=== PATIENT | female | born 1985 | race African-American/Black ===

== ENCOUNTER 2016-10-28 10:16 | Emergency (ER) | payer SELFPAY ==
--- NOTE | 2016-10-28 11:13 | ER Document Report ---
ED Flu Like - General Chief Complaint: Flu Symptoms Stated Complaint: COLD SYMPTOMS Time Seen by Provider: 10/28/16 10:31 Mode of Arrival: Ambulatory Information source: Patient Notes: 31-year-old female presents to ED for fever cough cold and chills last night. She has nasal congestion and sore throat. Patient denies taking her temperature. TRAVEL OUTSIDE OF THE [place] IN LAST 30 DAYS: No - HPI Onset: Yesterday Timing/Duration: Better Quality of pain: Achy Severity: Moderate Pain Level: 3 CO exposure: No Associated symptoms: Nonproductive cough, Sinus pain/drainage Similar symptoms previously: Yes Recently seen / treated by doctor: No - Related Data Allergies/Adverse Reactions: No Known Allergies Allergy (Verified 10/28/16 10:25) Past Medical History - General Information source: Patient - Social History Smoking Status: Current Every Day Smoker Cigarette use (# per day): Yes - 7 cigarettes a day Chew tobacco use (# tins/day): No Smoking Education Provided: Yes - Less than 2 minutes Frequency of alcohol use: None Drug Abuse: None Occupation: [employer] Lives with: Family Family History: Hypertension Patient has suicidal ideation: No Patient has homicidal ideation: No - Past Medical History Cardiac Medical History: Reports: Hx Hypertension Pulmonary Medical History: Reports: None EENT Medical History: Reports: None Neurological Medical History: Reports: None Endocrine Medical History: Reports: None Renal/ Medical History: Reports: None Malignancy Medical History: Reports: None GI Medical History: Reports: None Musculoskeltal Medical History: Reports None Skin Medical History: Reports None Psychiatric Medical History: Reports: None Traumatic Medical History: Reports: None Infectious Medical History: Reports: None Surgical Hx: Negative - Immunizations Immunizations up to date: No Hx Diphtheria, Pertussis, Tetanus Vaccination: No Review of Systems - Review of Systems Constitutional: Fever, Recent illness EENT: Nose discharge, Sinus pressure, Throat pain Cardiovascular: No symptoms reported Respiratory: Cough Gastrointestinal: No symptoms reported Genitourinary: No symptoms reported Female Genitourinary: No symptoms reported Musculoskeletal: No symptoms reported Skin: No symptoms reported Hematologic/Lymphatic: No symptoms reported Neurological/Psychological: No symptoms reported -: Yes All other systems reviewed and negative Physical Exam - Vital signs Vitals: Temp Pulse Resp BP Pulse Ox 98.4 F 84 18 138/95 H 96 10/28/16 10:24 10/28/16 10:24 10/28/16 10:24 10/28/16 10:24 10/28/16 10:24 Interpretation: Normal - General General appearance: Appears well, Alert - HEENT Head: Normocephalic, Atraumatic Eyes: Normal Pupils: PERRL Ears: Normal External canal: Normal Tympanic membrane: Normal Sinus: Normal Nasal: Swelling, Clear rhinorrhea Mouth/Lips: Normal Mucous membranes: Normal Pharynx: Post nasal drainage Neck: Normal - Respiratory Respiratory status: No respiratory distress Chest status: Nontender Breath sounds: Normal Chest palpation: Normal - Cardiovascular Rhythm: Regular Heart sounds: Normal auscultation Murmur: No - Abdominal Inspection: Normal Distension: No distension Bowel sounds: Normal Tenderness: Nontender Organomegaly: No organomegaly - Back Back: Normal, Nontender - Extremities General upper extremity: Normal inspection, Nontender, Normal color, Normal ROM , Normal temperature General lower extremity: Normal inspection, Nontender, Normal color, Normal ROM , Normal temperature, Normal weight bearing. No: Nelly's sign - Neurological Neuro grossly intact: Yes Cognition: Normal Orientation: AAOx4 Margie Coma Scale Eye Opening: Spontaneous Margie Coma Scale Verbal: Oriented Margie Coma Scale Motor: Obeys Commands [place] Coma Scale Total: 15 Speech: Normal Motor strength normal: LUE, RUE, LLE, RLE Sensory: Normal - Psychological Associated symptoms: Normal affect, Normal mood - Skin Skin Temperature: Warm Skin Moisture: Dry Skin Color: Normal Course - Re-evaluation Re-evalutation: 10/28/16 11:42 History and physical patient was consistent with upper respiratory infection. Patient instructed to please follow-up with local doctor for her elevated blood pressure. Patient instructed to [facility] to the drugstore [facility] and get her blood pressure checked several times to take to the doctor when she goes to follow-up. Patient encouraged to use saline spray and salt and soda solution for her sore throat and cold. - Vital Signs Vital signs: Temp Pulse Resp BP Pulse Ox 97.7 F 85 17 135/97 H 97 10/28/16 11:27 10/28/16 11:27 10/28/16 11:27 10/28/16 11:27 10/28/16 11:27 Discharge - Discharge Clinical Impression: URI (upper respiratory infection) Qualifiers: URI type: unspecified URI Qualified Code(s): J06.9 - Acute upper respiratory infection, unspecified Condition: Stable Disposition: HOME, SELF-CARE Instructions: Family Physicians / Practices Additional Instructions: UPPER RESPIRATORY ILLNESS: You have a viral infection of the respiratory passages -- a "cold." This common infection causes nasal congestion, drainage, and often sore throat and cough. It is highly contagious. The disease usually lasts about 10 to 14 days. There is no "cure" for the viral infection -- it must run its course. If there is a complication, such as bacterial infection in the nose, sinuses, middle ear, or bronchial tubes, antibiotics may be required. The antibiotics won't affect the virus. Drink plenty of fluids. A humidifier may help. An expectorant medication or decongestant may make you more comfortable. Use acetaminophen or ibuprofen for fever or aches. See the doctor if fever persists over two days, if there is any significant worsening of your symptoms, or if you simply fail to improve as expected. COUGH-SUPPRESSANT & EXPECTORANT MEDICATION: You are to use a cough medication as needed for relief of symptoms. This medicine is a combination of an expectorant (to make the mucous thinner and more easily "coughed up") and a cough suppressant (to reduce the frequency of coughing). The cough-suppressant medicine is related to narcotics. You may experience mild nausea and sleepiness. Some patients who are very sensitive to narcotics may have stomach pain from this medicine. Taking the medicine with food reduces these side effects. Do not drive or work with machinery until you know how this medicine affects you. The expectorant should have no side effects. Iodine-containing expectorants (such as organidin) should not be taken by persons with active thyroid disease unless approved by your doctor. Call the doctor if you develop shortness of breath, hives, rash, itching, lightheadedness, or severe nausea and vomiting. USE OF ACETAMINOPHEN (Tylenol): Acetaminophen may be taken for pain relief or fever control. It's much safer than aspirin, offering a wider range of "safe" dosages. It is safe during . Some brand names are Tylenol, Panadol, Datril, Anacin 3, Tempra, and Liquiprin. Acetaminophen can be repeated every four hours. The following are maximum recommended dosages: >89 pounds or adults 650 mg to 900 mg Acetaminophen can be repeated every four hours. Maximum dose not to exceed 4000 mg a day. Salt and soda solution 1 quart of water 1 tablespoon of salt 1 teaspoon of baking soda Mixed 3 ingredients together and boil for 1 minute Placed in a covered quart jar Use 1/2 ounce of cold solution to gargle 3 times a day FOLLOW-UP CARE: If you have been referred to a physician for follow-up care, call the physician s office for an appointment as you were instructed or within the next two days. If you experience worsening or a significant change in your symptoms, notify the physician immediately or return to the Emergency Department at any time for re-evaluation. Forms: Elevated Blood Pressure, Smoking Cessation Education, Return to Work
[2016-10-28 11:30] VITALS: BP 135/97
== END 2016-10-28 11:24 | disposition home or self-care (01) ==
LOC: ER 10:16
DX: J06.9 Acute upper respiratory infection, unspecified (principal); R50.9 Fever, unspecified; R05 Cough; R09.81 Nasal congestion; J02.9 Acute pharyngitis, unspecified; F17.210 Nicotine dependence, cigarettes, uncomplicated
CPT/HCPCS: 99283

== ENCOUNTER 2016-11-16 16:36 | Emergency (ER) | payer SELFPAY ==
[2016-11-16] MEDS ORDERED: ONDANSETRON 4 MG TAB.RAPDIS PO ONE (17:21)
--- NOTE | 2016-11-16 17:22 | ER Document Report ---
ED General - General Chief Complaint: Nausea Stated Complaint: COLD SYMPTOMS Time Seen by Provider: 11/16/16 17:11 TRAVEL OUTSIDE OF THE [place] IN LAST 30 DAYS: No - HPI Patient complains to provider of: nausea and vomiting Onset: Just prior to arrival Onset/Duration: Sudden Quality of pain: No pain Severity: None Pain Level: Denies Associated symptoms: Nausea Exacerbated by: Denies Relieved by: Denies Similar symptoms previously: No Recently seen / treated by doctor: No Notes: Admit sot recent cold symtpoms which has resolved, she states she hasnt had a BM in 3 days which is abnormal for her since she goes daily, denies abdominal pain - Related Data Allergies/Adverse Reactions: No Known Allergies Allergy (Verified 11/16/16 16:39) Past Medical History - Social History Smoking Status: Current Every Day Smoker Chew tobacco use (# tins/day): No Frequency of alcohol use: Occasional Drug Abuse: None Family History: Hypertension - Past Medical History Cardiac Medical History: Reports: Hx Hypertension Renal/ Medical History: Denies: Hx Peritoneal Dialysis - Immunizations Immunizations up to date: No Hx Diphtheria, Pertussis, Tetanus Vaccination: No Review of Systems - Review of Systems Constitutional: No symptoms reported EENT: No symptoms reported Cardiovascular: No symptoms reported Respiratory: No symptoms reported Gastrointestinal: See HPI Genitourinary: No symptoms reported Female Genitourinary: Other - last week -: Yes All other systems reviewed and negative Physical Exam - Vital signs Vitals: Temp Pulse Resp BP Pulse Ox 97.7 F 84 16 126/85 H 99 11/16/16 16:39 11/16/16 16:39 11/16/16 16:39 11/16/16 16:39 11/16/16 16:39 - Notes Notes: PHYSICAL EXAM GENERAL: Alert, interacts well. HEAD: Normocephalic, atraumatic. EYES: Pupils equal, round, and reactive to light. Extraocular movements intact. ENT: Oral mucosa moist, tongue midline. NECK: Full range of motion. Supple. Trachea midline. LUNGS: Clear to auscultation bilaterally, no wheezes, rales, or rhonchi. No respiratory distress. HEART: Regular rate and rhythm. No murmurs, gallops, or rubs. ABDOMEN: Soft, nondistended, nontender. No guarding, rebound, or rigidity.. Bowel sounds present in all 4 quadrants. EXTREMITIES: Moves all 4 extremities spontaneously. No edema, radial and dorsalis pedis pulses 2/4 bilaterally. No cyanosis. NEUROLOGICAL: Alert and oriented x4. Normal speech. PSYCH: Normal affect, normal mood. SKIN: Warm, dry, normal turgor. No rashes or lesions noted. Course - Re-evaluation Re-evalutation: 11/16/16 17:20 Patient is a 31-year-old female who is hemodynamically stable, no acute distress and afebrile. No evidence of acute abdominal pathology given benign physical exam. No evidence of bowel obstruction noted on x-ray. Patient tolerating p.o. without any difficulty. After performing a Medical Screening Examination, I estimate there is LOW risk for ACUTE APPENDICITIS, BOWEL OBSTRUCTION, ACUTE CHOLECYSTITIS, PERFORATED DIVERTICULITIS, INCARCERATED HERNIA, PANCREATITIS, PELVIC INFLAMMATORY DISEASE, PERFORATED ULCER, ECTOPIC , or TUBO-OVARIAN ABSCESS, thus I consider the discharge disposition reasonable. Also, there is no evidence or peritonitis , sepsis, or toxicity. I have reevaluated this patient multiple times and no significant life threatening changes are noted. The patient and I have discussed the diagnosis and risks, and we agree with discharging home with close follow-up with the understanding that symptoms and presentations can change. We also discussed returning to the Emergency Department immediately if new or worsening symptoms occur. We have discussed the symptoms which are most concerning (e.g., bloody stool, fever, changing or worsening pain, vomiting) that necessitate immediate return. - Vital Signs Vital signs: Temp Pulse Resp BP Pulse Ox 97.7 F 81 16 126/81 H 100 11/16/16 16:39 11/16/16 18:43 11/16/16 18:43 11/16/16 18:43 11/16/16 18:43 - Diagnostic Test Radiology reviewed: Image reviewed, Reports reviewed Discharge - Discharge Clinical Impression: Nausea Condition: Good Disposition: HOME, SELF-CARE Additional Instructions: CONSTIPATION: Constipation is a common problem. It is especially likely as you get older. Constipation is a common cause of abdominal pain, but sometimes causes no symptoms at all. Causes of constipation include certain medications, dehydration, diets, inactivity, and low-fiber intake. Rarely, it can be a symptom of underlying disease. The physician has evaluated you for this. Avoid constipation by eating a diet high in fiber, fruits, and vegetables. Drink plenty of liquids. Get regular exercise. If possible, avoid constipating medicines like narcotic pain medication. Some vitamin tablets can cause constipation. Stool softeners may be needed for difficult cases. An excellent stool softener is Konsyl which is available at [employer], and [employer]. Just add a teaspoon to a glass of pineapple or orange juice daily or twice a day if needed. Laxatives are useful for occasional constipation. You should use them only when necessary. Too-frequent use can make your bowels dependent on them. Some over the counter laxatives available without prescription are: Milk of Magnesia, 1-2 tablespoons twice a day Dulcolax, 5 mg pill or 10 mg suppository. Citrate of Magnesia, 4-5 ounces a day for a day or two For acute constipation, Fleet's Enemas and Dulcolax suppositories are helpful. Chronic, emt intermediate use of laxatives or enemas is not a good idea. Your bowel may become dependant on them. You do not need to have a bowel movement every day. Many people do fine with a bowel movement every three or four days. You should call your doctor or return for re-evaluation if you pass blood in the stool, or if you develop fever or increasing abdominal pain. FOLLOW-UP CARE: If you have been referred to a physician for follow-up care, call the physician s office for an appointment as you were instructed or within the next two days. If you experience worsening or a significant change in your symptoms, notify the physician immediately or return to the Emergency Department at any time for re-evaluation. Prescriptions: Ondansetron [Zofran Odt 4 mg Tablet] 1 - 2 tab PO Q4H PRN #15 tab.rapdis PRN Reason: For Nausea/Vomiting Forms: Return to Work
--- NOTE | 2016-11-16 18:13 | RADIOLOGY REPORT (SQ) ---
EXAM DESCRIPTION: KUB/ABDOMEN (SINGLE VIEW) COMPLETED DATE/TIME: 11/16/2016 5:47 pm REASON FOR STUDY: nausea and constipation COMPARISON: None. NUMBER OF VIEWS: One view. TECHNIQUE: Supine radiographic image of the abdomen acquired. LIMITATIONS: None. FINDINGS: BOWEL GAS PATTERN: Normal bowel gas pattern. No dilated loops. CALCIFICATIONS: No suspicious calcifications. SOFT TISSUES: No gross mass or suggestion of organomegaly. HARDWARE: None in the abdomen. BONES: No acute fracture. No worrisome bone lesions. OTHER: No other significant finding. IMPRESSION: NO RADIOGRAPHIC EVIDENCE FOR ACUTE ABDOMINAL DISEASE. TECHNICAL DOCUMENTATION: JOB ID: [id number] [employer]- All Rights Reserved
[2016-11-16 18:44] VITALS: BP 126/81
== END 2016-11-16 18:39 | disposition home or self-care (01) ==
LOC: ER 16:36
DX: R11.2 Nausea with vomiting, unspecified (principal); R19.4 Change in bowel habit; F17.200 Nicotine dependence, unspecified, uncomplicated; I10 Essential (primary) hypertension
CPT/HCPCS: 99283; 74000; S0119